=== PATIENT | female | born 1950 | race Two or more races ===

== ENCOUNTER 2018-04-30 23:26 | Emergency (ER) | payer OTHER ==
[~2018-04-30] VITALS: Ht 160 cm; Wt 83.0 kg
[~2018-04-30 23:26] MED LIST: ADVAIR 2501 DISK W/1 IH; ATORVASTATIN CA10 MG PO; CEFADROXIL500 MG PO; FAMOTIDINE20 MG PO; FLOVENT 110MCG7.9 GM IH; LISINOPRIL10 MG PO; MERCAPTOPURINE50 MG PO; METFORMIN HCL1000 MG PO; METOCLOPRAMIDE10 MG PO; OXYCODONE-APAP1 TAB PO; PEPCID40 MG PO; PERCOCET 5/3251 TAB PO; PHENERGAN25 MG PO; PRINIVIL10 MG PO; PROTONIX40 MG PO; PROVENTIL3 ML/2.5 M IH; SINGULAIR 10MG10 MG PO; ULTRAM50 MG PO; VALTREX1000 MG PO; ZANTAC300 MG PO; ZITHROMAX500 MG PO; ZOFRAN8 MG PO; ZOVIRAX15 GM TP; ZYNCOF 20-400120 ML PO; [UNRECOGNIZED DRUG - OTHER] TP
[2018-04-30] MEDS ORDERED: SPRYCEL100 MG (23:33)
[2018-04-30] MEDS ORDERED: AMLODIPINE BESYL5 MG (23:33)
[2018-04-30] MEDS ORDERED: ZESTRIL30 MG (23:34)
== END 2018-05-01 03:14 | disposition home or self-care (01) ==
LOC: ER 23:26
DX: I16.0 Hypertensive urgency (principal); I10 Essential (primary) hypertension; J45.998 Other asthma

== ENCOUNTER 2018-05-03 22:46 | Emergency (ER) | payer OTHER ==
[~2018-05-03] VITALS: Ht 160 cm; Wt 83.0 kg
[~2018-05-03 22:46] MED LIST changes: +AMLODIPINE BESYL5 MG; +SPRYCEL100 MG; +ZESTRIL30 MG
== END 2018-05-04 02:50 | disposition home or self-care (01) ==
LOC: ER 22:46
DX: I16.0 Hypertensive urgency (principal); I10 Essential (primary) hypertension

== ENCOUNTER 2018-07-16 23:28 | Emergency (ER) | payer OTHER ==
[~2018-07-16] VITALS: Ht 160 cm; Wt 83.0 kg
[2018-07-17] MEDS ORDERED: SINGULAIR10 MG PO (04:15)
[2018-07-17] MEDS ORDERED: ZYNCOF 20-400120 ML PO (04:15)
[2018-07-17] MEDS ORDERED: ADVAIR 100-501 EACH IH (04:15)
[2018-07-17] MEDS ORDERED: ALBUTEROL2.5 MG/3 M IH (04:16)
== END 2018-07-17 04:26 | disposition home or self-care (01) ==
LOC: ER 23:28
DX: J44.1 Chronic obstructive pulmonary disease with (acute) exacerbation (principal); J11.1 Influenza due to unidentified influenza virus with other respiratory manifestations

== ENCOUNTER → 2018-09-10 | Emergency (ER) | payer OTHER ==
[~2018-09-10] VITALS: Ht 160 cm; Wt 83.5 kg
[~2018-09-10] MED LIST changes: +ADVAIR 100-501 EACH IH; +ALBUTEROL2.5 MG/3 M IH; +INTESTINEX680 M1 PO; +SINGULAIR10 MG PO
== END | disposition home or self-care (01) ==
LOC: ER 01:18
DX: K29.60 Other gastritis without bleeding (principal)

== ENCOUNTER 2020-03-02 15:22 | Inpatient (IN) | payer OTHER ==
[~2020-03-02] VITALS: Ht 154.9 cm; Wt 70.3 kg
[2020-03-02] MEDS ORDERED: ZESTRIL40 M1 PO (15:40)
[2020-03-02] MEDS ORDERED: AMLODIPINE BESY10 MG PO (15:41)
[2020-03-02] MEDS ORDERED: ONDANSETRON HCL4 MG PO (15:41)
[2020-03-02] MEDS ORDERED: METFORMIN HCL1000 M3 PO (15:42)
== END 2020-03-13 22:30 | DRG 194 ==
LOC: ER 15:22 → SEC-K 20:16 → MEDJ 20:16
PROVIDERS: ADMIT Internal Medicine; ATTEND Internal Medicine
PROC: BB24ZZZ Computerized Tomography (CT Scan) of Bilateral Lungs (ICD-10-PCS; principal; 2020-03-02)
PROC: B246ZZZ Ultrasonography of Right and Left Heart (ICD-10-PCS; 2020-03-02)
PROC: 4A033R1 Measurement of Arterial Saturation, Peripheral, Percutaneous Approach (ICD-10-PCS; 2020-03-02)
PROC: 3E0F7GC Introduction of Other Therapeutic Substance into Respiratory Tract, Via Natural or Artificial Opening (ICD-10-PCS; 2020-03-02)
PROC: 4A12X4Z Monitoring of Cardiac Electrical Activity, External Approach (ICD-10-PCS; 2020-03-04)
PROC: 02HV33Z Insertion of Infusion Device into Superior Vena Cava, Percutaneous Approach (ICD-10-PCS; 2020-03-04)
PROC: 30233P1 Transfusion of Nonautologous Frozen Red Cells into Peripheral Vein, Percutaneous Approach (ICD-10-PCS; 2020-03-04)
PROC: 0W993ZZ Drainage of Right Pleural Cavity, Percutaneous Approach (ICD-10-PCS; 2020-03-08)
DX: J18.9 Pneumonia, unspecified organism (principal); C91.00 Acute lymphoblastic leukemia not having achieved remission; J45.901 Unspecified asthma with (acute) exacerbation; J44.0 Chronic obstructive pulmonary disease with (acute) lower respiratory infection; J90 Pleural effusion, not elsewhere classified; B02.30 Zoster ocular disease, unspecified; R65.10 Systemic inflammatory response syndrome (SIRS) of non-infectious origin without acute organ dysfunction; K29.70 Gastritis, unspecified, without bleeding; E86.0 Dehydration; E11.65 Type 2 diabetes mellitus with hyperglycemia; I11.0 Hypertensive heart disease with heart failure; M62.838 Other muscle spasm; D51.1 Vitamin B12 deficiency anemia due to selective vitamin B12 malabsorption with proteinuria; D69.6 Thrombocytopenia, unspecified; D64.9 Anemia, unspecified; D51.0 Vitamin B12 deficiency anemia due to intrinsic factor deficiency; D89.9 Disorder involving the immune mechanism, unspecified; Z20.828 Contact with and (suspected) exposure to other viral communicable diseases

== ENCOUNTER 2020-03-18 16:19 | Emergency (ER) | payer OTHER ==
[~2020-03-18] VITALS: Ht 160 cm; Wt 87.5 kg
[~2020-03-18 16:19] MED LIST changes: +AMLODIPINE BESY10 MG PO; +METFORMIN HCL1000 M3 PO; +ONDANSETRON HCL4 MG PO; +ZESTRIL40 M1 PO
[2020-03-19] MEDS ORDERED: ORPHENADRINE C100 MG PO (14:57)
[2020-03-19] MEDS ORDERED: KETO10TA2 PO (14:57)
== END 2020-03-19 15:26 | disposition home or self-care (01) ==
LOC: ER 16:19 → CPU-OBS 16:22 → ER 16:22
DX: M62.830 Muscle spasm of back (principal); J44.9 Chronic obstructive pulmonary disease, unspecified; J45.998 Other asthma; J18.8 Other pneumonia, unspecified organism; J90 Pleural effusion, not elsewhere classified; K80.80 Other cholelithiasis without obstruction; R16.0 Hepatomegaly, not elsewhere classified; C94.81 Other specified leukemias, in remission; R07.89 Other chest pain; R06.02 Shortness of breath; D64.89 Other specified anemias; I11.0 Hypertensive heart disease with heart failure; I50.9 Heart failure, unspecified; E78.49 Other hyperlipidemia; Z03.818 Encounter for observation for suspected exposure to other biological agents ruled out